=== PATIENT | male | born 1960 | race African-American/Black ===

== ENCOUNTER 2022-12-20 20:12 | Inpatient (IN) | payer BC ==
[2022-12-20] MEDS ORDERED: Magnesium 2 GM/50 ML BAG (IN WATER) ONE (20:33)
[2022-12-20] MEDS ORDERED: Azithromycin 500 MG VIAL ONE (20:33)
[2022-12-20] MEDS ORDERED: Ipratropium/Albuterol 3 ML NEB ONE (20:33)
[2022-12-20] MEDS ORDERED: cefTRIAXone (ROCEPHIN) 2 GM VIAL ONE (20:33)
[2022-12-20 21:00] LABS: Hematocrit 37.2 % (42.0-52.0); Hemoglobin 12.6 g/dL (14.0-18.0); Mean Corpuscular HGB CONC 33.9 g/dL (32.0-36.0); Mean Corpuscular Hemoglobin 32.1 pg (27.0-31.0); Mean Corpuscular Volume 94.9 fl (78.0-98.0); Platelet Count 301 10x3/uL (130-400); RBC Distribution Width 11.9 % (11.5-14.5); Red Blood Cell (RBC) Count 3.92 mill/uL (4.70-6.10)
[2022-12-20 21:07] LABS: Delete Auto Diff?? YES; Manual Diff?? YES
[2022-12-20 21:26] LABS: Troponin I Less than 0.010 ng/mL (< 0.028)
[2022-12-20] MEDS ORDERED: Morphine 4 MG/ML VIAL ONE (21:27)
[2022-12-20 21:29] LABS: ALT (SGPT) 32 U/L (8-55); AST (SGOT) 25 U/L (5-34); Albumin 4.5 g/dL (3.4-4.8); Alkaline Phosphatase 86 U/L (40-110); Anion Gap 20 mmol/L (10-20); BUN (Urea Nitrogen) 59 mg/dL (8.4-25.7); Bilirubin, Total 0.7 mg/dL (0.2-1.2); Calc. Creatinine Clearance 0 mL/min (70-130); Calcium 9.5 mg/dL (7.8-10.44); Carbon Dioxide 21 mmol/L (23-31); Chloride 98 mmol/L (98-107); Estimated GFR 26; Globulin 3.3 g/dL (2.4-3.5); Glucose 163 mg/dL (80-115); Potassium 4.4 mmol/L (3.5-5.1); Protein, Total 7.8 g/dL (5.8-8.1); Sodium 135 mmol/L (136-145)
[2022-12-20 21:33] LABS: Band 5 % (5-11); CellaVision Operator ID LAB.CLH1; Lymphocytes 8 % (21-51); Monocytes 6 % (0-10); Neutrophil 81 % (42-75); Platelet Adequacy Comment Platelets Normal; Total Cell Count 99
[2022-12-20 21:51] LABS: SARS-CoV-2 NAA Rapid Test Not Detected (NotDetected)
[2022-12-20 22:08] LABS: Bilirubin Negative (Negative); Blood, Urine Trace (Negative); CAUTI Indications for Culture Fever or rigors; Clarity Clear (Clear); Glucose, Urine (Dipstick) Normal (Negative); Ketone, Urine Negative (Negative); Leukocyte Negative Leu/uL (Negative); Nitrite Negative (Negative); Protein, Urine (Dipstick) 30 mg/dL (Neg-Trace); RBC/HPF 0-3 HPF (0-3); Renal Epithelial 0-3 HPF (None Seen); Specific Gravity, Urine 1.019 (1.002-1.036); Squamous Epithelial 0-3 HPF (0-3); Urobilinogen Normal mg/dL (Less than 2); WBC/HPF 0-3 HPF (0-3)
[2022-12-20 22:16] LABS: Bacteria/HPF 1+ HPF (None Seen); Urine Culture Reflex No No
[2022-12-20] MEDS ORDERED: metroNIDAZOLE 500 MG/100 ML BAG ONE (23:05)
[2022-12-21] MEDS ORDERED: Acetaminophen 325 MG TAB PO PRN (00:01)
[2022-12-21] MEDS ORDERED: Ondansetron ODT 4 MG TAB PO PRN (00:01)
[2022-12-21] MEDS ORDERED: Ondansetron PF 4 MG/2 ML Vial IVP PRN (00:01)
[2022-12-21] MEDS ORDERED: Ipratropium/Albuterol 3 ML NEB NEB PRN (00:03)
[2022-12-21] MEDS ORDERED: D5 1/2 NS w/20 mEq KCL 1,000 ML IV SCH (00:15)
[2022-12-21 00:20] VITALS: BMI 34.9
[2022-12-21 00:47] LABS: Hemoglobin A1c 6.2 % (4.0-6.0)
[2022-12-21] MEDS: metroNIDAZOLE 500 MG in Premix Bag 1 BAG IVPB SCH ×3 (06:33→20:22)
[2022-12-21 06:36] LABS: #Monocytes 0.7 thou/uL (0.11-0.59); #Neutrophils 21.6 thou/uL (1.40-6.50); %Basophils 0.2 % (0.0-1.0); %Lymphocytes 3.3 % (21.0-51.0); %Monocytes 2.8 % (0.0-10.0); %Neutrophils 92.9 % (42.0-75.0); Hematocrit 35.3 % (42.0-52.0); Hemoglobin 11.4 g/dL (14.0-18.0); Mean Corpuscular HGB CONC 32.3 g/dL (32.0-36.0); Mean Corpuscular Hemoglobin 32.2 pg (27.0-31.0); Mean Platelet Volume 9.5 fL (7.4-10.4); Platelet Count 252 10x3/uL (130-400); RBC Distribution Width 11.9 % (11.5-14.5); Red Blood Cell (RBC) Count 3.54 mill/uL (4.70-6.10); White Blood Cell (WBC) Count 23.2 10x3/uL (4.8-10.8)
[2022-12-21 06:37] LABS: Mean Corpuscular Volume 99.7 fl (78.0-98.0)
[2022-12-21 07:05] LABS: ALT (SGPT) 30 U/L (8-55); AST (SGOT) 24 U/L (5-34); Albumin 3.9 g/dL (3.4-4.8); Alkaline Phosphatase 82 U/L (40-110); Anion Gap 17 mmol/L (10-20); BUN (Urea Nitrogen) 53 mg/dL (8.4-25.7); Bilirubin, Total 0.3 mg/dL (0.2-1.2); Calc. Creatinine Clearance 54 mL/min (70-130); Carbon Dioxide 19 mmol/L (23-31); Chloride 101 mmol/L (98-107); Estimated GFR 34; Globulin 3.8 g/dL (2.4-3.5); Glucose 241 mg/dL (80-115); Potassium 4.6 mmol/L (3.5-5.1); Protein, Total 7.7 g/dL (5.8-8.1); Sodium 132 mmol/L (136-145)
[2022-12-21] MEDS: Famotidine/PF 20 mg/2ml Vial SLOW IVP SCH (08:10)
[2022-12-21] MEDS: predniSONE 20 MG TAB PO SCH (08:10)
[2022-12-21] MEDS: Famotidine 20 MG TAB PO SCH (08:19)
[2022-12-21] MEDS ORDERED: HYDROcodone/Acetaminophen 5/325 mg Tablet PO PRN (14:47)
[2022-12-21] MEDS: Morphine 2 MG/ML VIAL SLOW IVP PRN (15:11)
[2022-12-21] MEDS: Rosuvastatin 20 MG TAB PO SCH (20:22)
[2022-12-22] MEDS: Morphine 2 MG/ML VIAL SLOW IVP PRN (02:50)
[2022-12-22] MEDS: metroNIDAZOLE 500 MG in Premix Bag 1 BAG IVPB SCH ×3 (05:23→21:09)
[2022-12-22] MEDS: Famotidine 20 MG TAB PO SCH (08:25)
[2022-12-22] MEDS: Aspirin Chewable 81 MG TAB PO SCH (08:25)
[2022-12-22] MEDS: Famotidine/PF 20 mg/2ml Vial SLOW IVP SCH (08:26)
[2022-12-22] MEDS: Tamsulosin HCl 0.4 MG CAP PO SCH (08:26)
[2022-12-22] MEDS: predniSONE 20 MG TAB PO SCH (08:26)
[2022-12-22] MEDS: Multivitamin W/ Minerals 1 TAB PO SCH (08:26)
[2022-12-22 09:29] LABS: Hematocrit 36.4 % (42.0-52.0); Hemoglobin 11.7 g/dL (14.0-18.0); Mean Corpuscular HGB CONC 32.1 g/dL (32.0-36.0); Mean Corpuscular Hemoglobin 31.8 pg (27.0-31.0); Mean Corpuscular Volume 98.9 fl (78.0-98.0); Mean Platelet Volume 9.2 fL (7.4-10.4); Platelet Count 295 10x3/uL (130-400); RBC Distribution Width 11.6 % (11.5-14.5); Red Blood Cell (RBC) Count 3.68 mill/uL (4.70-6.10); White Blood Cell (WBC) Count 28.5 10x3/uL (4.8-10.8)
[2022-12-22 09:33] LABS: Delete Auto Diff?? YES; Manual Diff?? YES
[2022-12-22 10:11] LABS: Anisocytosis SLIGHT = 6-15 cells HPF (0-5); Band 6 % (5-11); Burr Cells SLIGHT = 2-5 cells HPF (0-1); CellaVision Operator ID lab.dlt; Lymphocytes 8 % (21-51); Macrocytosis SLIGHT = 6-15 cells HPF (0-5); Monocytes 4 % (0-10); Neutrophil 82 % (42-75); Platelet Adequacy Comment Platelets Normal; Poikilocytosis SLIGHT = 6-15 cells HPF (0-5); Polychromasia SLIGHT = 2-3 cells HPF (0-2); Total Cell Count 99
[2022-12-22] MEDS: Rosuvastatin 20 MG TAB PO SCH (20:05)
[2022-12-23] MEDS: Morphine 2 MG/ML VIAL SLOW IVP PRN (02:45)
[2022-12-23] MEDS: metroNIDAZOLE 500 MG in Premix Bag 1 BAG IVPB SCH (05:32)
[2022-12-23 06:52] LABS: #Monocytes 1.5 thou/uL (0.11-0.59); #Neutrophils 16.6 thou/uL (1.40-6.50); %Basophils 0.1 % (0.0-1.0); %Eosinophils 0.2 % (0.0-10.0); %Lymphocytes 12.2 % (21.0-51.0); %Monocytes 6.9 % (0.0-10.0); %Neutrophils 79.6 % (42.0-75.0); Hematocrit 33.8 % (42.0-52.0); Hemoglobin 11.1 g/dL (14.0-18.0); Mean Corpuscular HGB CONC 32.8 g/dL (32.0-36.0); Mean Corpuscular Hemoglobin 31.4 pg (27.0-31.0); Mean Platelet Volume 9.1 fL (7.4-10.4); Platelet Count 330 10x3/uL (130-400); RBC Distribution Width 11.7 % (11.5-14.5); Red Blood Cell (RBC) Count 3.53 mill/uL (4.70-6.10); White Blood Cell (WBC) Count 20.9 10x3/uL (4.8-10.8)
[2022-12-23 06:57] LABS: Mean Corpuscular Volume 95.8 fl (78.0-98.0)
[2022-12-23 07:26] LABS: Anion Gap 13 mmol/L (10-20); BUN (Urea Nitrogen) 32 mg/dL (8.4-25.7); Calc. Creatinine Clearance 88 mL/min (70-130); Calcium 9.3 mg/dL (7.8-10.44); Carbon Dioxide 24 mmol/L (23-31); Chloride 101 mmol/L (98-107); Estimated GFR 61; Glucose 115 mg/dL (80-115); Potassium 3.8 mmol/L (3.5-5.1); Sodium 134 mmol/L (136-145)
[2022-12-23] MEDS: Multivitamin W/ Minerals 1 TAB PO SCH (08:49)
[2022-12-23] MEDS: Famotidine 20 MG TAB PO SCH (08:49)
[2022-12-23] MEDS: Aspirin Chewable 81 MG TAB PO SCH (08:49)
[2022-12-23] MEDS: predniSONE 20 MG TAB PO SCH (08:49)
[2022-12-23] MEDS: Tamsulosin HCl 0.4 MG CAP PO SCH (08:49)
[2022-12-23] MEDS ORDERED: Ciprofloxacin 500 MG TAB PO SCH (10:30)
[2022-12-23] MEDS: metroNIDAZOLE 500 MG TAB PO SCH ×2 (14:42→20:00)
[2022-12-23] MEDS: Ciprofloxacin 500 MG TAB PO SCH (20:00)
[2022-12-23] MEDS: Rosuvastatin 20 MG TAB PO SCH (20:00)
[2022-12-24] MEDS: Ciprofloxacin 500 MG TAB PO SCH (05:26)
[2022-12-24] MEDS: metroNIDAZOLE 500 MG TAB PO SCH ×2 (08:09→15:05)
[2022-12-24] MEDS: Multivitamin W/ Minerals 1 TAB PO SCH (08:09)
[2022-12-24] MEDS: Aspirin Chewable 81 MG TAB PO SCH (08:09)
[2022-12-24] MEDS: Famotidine 20 MG TAB PO SCH (08:09)
[2022-12-24] MEDS: Tamsulosin HCl 0.4 MG CAP PO SCH (08:09)
[2022-12-24 16:46] VITALS: BP 131/84; TEMP 98.6
== END 2022-12-24 17:30 | disposition home or self-care (01) | DRG 202 ==
LOC: ERS 20:12 → T4-A 23:11
PROVIDERS: ADMIT Student in an Organized Health Care Education/Training Program; ATTEND Family Medicine
DX: J45.901 Unspecified asthma with (acute) exacerbation (principal); K57.32 Diverticulitis of large intestine without perforation or abscess without bleeding; N17.9 Acute kidney failure, unspecified; N18.30 Chronic kidney disease, stage 3 unspecified; I12.9 Hypertensive chronic kidney disease with stage 1 through stage 4 chronic kidney disease, or unspecified chronic kidney disease; E78.5 Hyperlipidemia, unspecified; Z87.891 Personal history of nicotine dependence; Z82.49 Family history of ischemic heart disease and other diseases of the circulatory system
CPT/HCPCS: 36415; 71045; 74176; 80048; 80053; 81001; 83036; 83605; 84484; 85025; 87040; 87086; 93005; 94760; 96365; 96367; 96375; J0456; J0696; J0744; J2270; J2272; J3475; J3480; J7512; J7620; S0028